=== PATIENT | male | born 1945 | race Caucasian/White ===

== ENCOUNTER 2020-10-29 15:21 | Inpatient (IN) | payer MEDICARE, OTHER ==
[~2020-10-29] VITALS: Ht 185.4 cm; Wt 73.9 kg
--- NOTE | 2020-10-29 15:26 | NUR ---
PT IS IN ROOM #1A. DR ASHRAF EVALUATED THE PT.
[2020-10-29] MEDS ORDERED: HYDR12.55 PO (15:46)
[2020-10-29] MEDS ORDERED: LOSA100T31 PO (15:46)
[2020-10-29] MEDS ORDERED: FLUT16SP16 NS (15:46)
[2020-10-29] MEDS ORDERED: ASPI81TA31 PO (15:46)
[2020-10-29] MEDS ORDERED: CA C1TAB98 PO (15:46)
[2020-10-29] MEDS ORDERED: MELA5TAB PO (15:46)
[2020-10-29] MEDS ORDERED: QUET25TA PO (15:46)
[2020-10-29] MEDS ORDERED: OMEP20TA5 PO (15:46)
[2020-10-29] MEDS ORDERED: HYDR20TA PO (15:46)
[2020-10-29] MEDS ORDERED: ROSU40TA PO (15:46)
[2020-10-29] MEDS ORDERED: NITR0.4T48 SL (15:46)
[2020-10-29] MEDS ORDERED: [UNRECOGNIZED DRUG - CODE] TD (15:46)
[2020-10-29] MEDS ORDERED: HYDR10TA PO (15:46)
[2020-10-29 16:26] LABS: *BILIRUBIN,URIN NEGATIVE (NEGATIVE); *BLOOD, URINE NEGATIVE (NEGATIVE); *CLARITY,URINE CLEAR (CLEAR); *COLOR,URINE YELLOW (YELLOW); *KETONES,URINE NEGATIVE (NEGATIVE); *UROBILINOGEN,URINE 0.2 E.U./dl (NORMAL); LEUKOCYTE ESTERASE ,URINE NEGATIVE (NEGATIVE); NITRITE, URINE NEGATIVE (NEGATIVE); UGLUCOSE NEGATIVE (NEGATIVE)
[2020-10-29 16:30] VITALS: BP 185/71
--- NOTE | 2020-10-29 17:37 | NUR ---
REPORT WAS GIVEN TO RN MHU. PT WAS TRANSFERED TO MHU ROOM #145A.
[2020-10-29] MEDS ORDERED: hydrALAZINE HCL 10 MG TABLET PO ONE (18:45)
--- NOTE | 2020-10-29 18:58 | NUR ---
Gps: patient blood pressure 185/71 hydralazine 10 mg po given per md ordered.
[2020-10-29] MEDS ORDERED: TEMAZEPAM 7.5 MG CAPSULE PO PRN (19:00)
[2020-10-29] MEDS ORDERED: MAGNESIUM HYDROXIDE 30 ML LIQUID UDC PO PRN (19:00)
[2020-10-29] MEDS ORDERED: MAG HYDROX/AL HYDROX/SIMETH 30 ML LIQUID UDC PO PRN (19:00)
[2020-10-29] MEDS ORDERED: ACETAMINOPHEN 325 MG TABLET PO PRN (19:00)
--- NOTE | 2020-10-29 19:03 | NUR ---
PT RECEIVED ON THE UNIT AT 1830 VIA WHEELCHAIR ON 5150. PATIENT IS A/O X2. PT WAS AGITATED WHEN ASKED TO REMOVE HIS BELT AND SHOE LACES. PT IS ABLE TO FOLLOW DIRECTIONS OTHERWISE. BP WAS ELEVATED, ROUTER OPERATOR PIN WAS NOTIFIED AND ORDER FOR ONE TIME HYDRALAZINE OBTAINED. DR. BATES NOTIFIED. PT IS CALM. REPORT WAS ENDORSED TO THE UPCOMING SHIFT.
[2020-10-29 19:45] VITALS: BP 165/65
[2020-10-29] MEDS ORDERED: hydrALAZINE HCL 10 MG TABLET PO PRN (20:45)
[2020-10-29] MEDS ORDERED: FLUTICASONE PROP NASAL SPRAY 16 GM BOTTLE NS SCH (20:45)
[2020-10-29] MEDS: ATORVASTATIN 40 MG TABLET PO SCH ×2 (21:00→22:30)
--- NOTE | 2020-10-29 21:00 | NUR ---
ADMISSION NOTE; Received to care, on a 72 hour hold for danger to self/danger to others. According to the hold, and the medical record, he was residing at [facility], since 10/16/20. Previous to that, he appears to have been at a few other similar facilities for a short amount of time, and before that, he was living alone. He has a brother, kavon, who is his power of business attorney, but he has become paranoid, and untrusting of him, recently. It seems he has been at the hospital several times recently, but always leaves awol, due to becoming fearful. he also reportedly attempted to exit out of his brothers car, while it was moving. In this most recent episode, he awoled to [facility], where he is a member, but wouldn't leave. Law enforcement was called, and he was placed on a hold, and taken to [facility], then transferred here. Upon arrival, his b/p was elevated, 185/71. he was medicated with hydralazine, at 1857. By 1944 it was 165/65. At 1999, was appearing agitated and fearful, refusing to have his belt and shoes with laces,or necklace, taken from his person, or a body check performed. he remained up in the megan chair, at the nurses station, for safety. As of 2099, he is calmer, and more cooperative, agreeing to let staff take his contraband, and do a body check, on him. his b/p is now 138/77. will continue to monitor closely.
[2020-10-29] MEDS: LORAZEPAM 0.5 MG TABLET PO PRN (21:53)
[2020-10-29] MEDS: HYDROCORTISONE 10 MG TABLET PO SCH (21:59)
--- NOTE | 2020-10-29 23:00 | NUR ---
At 2152, he was appearing to get quite agitated, so he was offered PRN Ativan, along with his routine Meds. he initially agreed to take this, but when the Meds were presented, he refused to take them. at 2229, he took his Lipitor dose only, and asked to go to bed. when approached a minute later, he denied asking to go to bed, and wanted to stay in the chair. as or 2299, he appears to be asleep. no distress noted. will continue to monitor closely.
[2020-10-29] MEDS ORDERED: HYDROCORTISONE 10 MG TABLET ONE (23:07)
[2020-10-30 05:45] VITALS: BP 146/74
[2020-10-30] MEDS: PANTOPRAZOLE SODIUM 40 MG TABLET.DR PO SCH (06:42)
[2020-10-30 07:30] VITALS: BP 149/62
[2020-10-30] MEDS ORDERED: FLUTICASONE PROP NASAL SPRAY 16 GM BOTTLE NS PRN (07:48)
--- NOTE | 2020-10-30 08:27 | NUR ---
FIREARMS REPORT: Salesperson Stereo Equipment completed and submitted a DOJ firearms report for 5150 grave disability certification. A copy of report has been placed in patient chart.
[2020-10-30] MEDS: ASPIRIN 81 MG TAB.CHEW PO SCH (09:00)
[2020-10-30] MEDS: LOSARTAN POTASSIUM 50 MG TABLET PO SCH (09:57)
[2020-10-30] MEDS: HYDROCHLOROTHIAZIDE 12.5 MG CAPSULE PO SCH (09:57)
[2020-10-30] MEDS: HYDROCORTISONE 10 MG TABLET PO SCH ×2 (09:58→20:20)
[2020-10-30] MEDS: CALCIUM CARBONATE 500 MG TABLET PO SCH (10:00)
--- NOTE | 2020-10-30 10:50 | NUR ---
DHARMESH Initial Discharge Plan: Patient lives at [address] [place] [address] [address], [place] [address]; ([phone]). Patient's brother Jones ([phone]) is involved in patient's care and stated that he is the DPOA and will fax it to this greeting card writer. Brother stated pt will return back home upon dc. DHARMESH discussed treatment and discharge plan. DHARMESH will coordinate with pt, family, and doctor.
--- NOTE | 2020-10-30 10:51 | NUR ---
DHARMESH Family Contact: Patient's brother Jones ([phone]) is involved in patient's care and stated that he is the DPOA and will fax it to this bond underwriter. Brother stated pt will return back home upon dc. DHARMESH discussed treatment and discharge plan.
--- NOTE | 2020-10-30 10:51 | NUR ---
SW Substance Intervention: Patient was provided with a brief substance abuse intervention and referred to [facility] ([phone]), [facility] ([phone]), and [facility] ([phone]).
--- NOTE | 2020-10-30 11:08 | NUR ---
Treatment Plan: Pt refused to sign due to confusion.
--- NOTE | 2020-10-30 12:06 | NUR ---
Pt alert and verbally responsive. cooperative with care at this time. took the medication this morning. able to speak with BUTCH, the brother and informed him that pt is admitted here in MHU. Butch stated it's better that pt stays here and get the proper medication. per Butch, pt had a covid vaccine last 04/30/20 and 05/30/20 with MODERNA vaccine. pt no information about his PNA VACC.
--- NOTE | 2020-10-30 12:49 | NUR ---
SW Family Contact: Patient's brother Jones ([phone]) who stated pt was living alone independently but unable to take care of self and he was at Memory care unit couple weeks ago. Brother stated he coordinated pt to go to a different memory care unit called [facility] ([phone]) and spoke with Cady bowers who coordinates this.
--- NOTE | 2020-10-30 12:50 | NUR ---
[facility]: This SW spoke with Cady bowers from [facility] ([phone]) who stated that they have been working with family and are accepting pt.
--- NOTE | 2020-10-30 12:51 | NUR ---
[facility]: DHARMESH spoke with medical receptionist ([phone]) who stated that family coordinated for different placement. DHARMESH called admin Antonia ([phone]) and left a voicemail.
--- NOTE | 2020-10-30 14:10 | NUR ---
UR Note: Auth# [id number] Obtained from Caterina with [facility] [phone] 3 days approved with review due on Tuesday10/31/2020. Supervisor [place] [employer]. assigned is Bhavesh Mullins ext [phone].
[2020-10-30 16:20] VITALS: BP 156/69
--- NOTE | 2020-10-30 18:29 | NUR ---
GPS: recieved faxed consent order for pt seroquel signed by Psychiatrist. sent faxed to [employer] per request and received it.
[2020-10-30 20:05] VITALS: BP 146/62
[2020-10-30] MEDS: QUETIAPINE FUMARATE 25 MG TABLET PO SCH (20:20)
[2020-10-30] MEDS: ATORVASTATIN 40 MG TABLET PO SCH (20:20)
[2020-10-31] MEDS: PANTOPRAZOLE SODIUM 40 MG TABLET.DR PO SCH (06:35)
[2020-10-31] MEDS: HYDROCHLOROTHIAZIDE 12.5 MG CAPSULE PO SCH (08:11)
[2020-10-31] MEDS: CALCIUM CARBONATE 500 MG TABLET PO SCH (08:11)
[2020-10-31] MEDS: HYDROCORTISONE 10 MG TABLET PO SCH ×4 (08:11→20:13)
[2020-10-31] MEDS: ASPIRIN 81 MG TAB.CHEW PO SCH (08:11)
[2020-10-31] MEDS: LOSARTAN POTASSIUM 50 MG TABLET PO SCH (08:11)
--- NOTE | 2020-10-31 08:22 | NUR ---
UR Note: Auth# [id number] Metalizing Machine Operator AutomaticAj Adler. ext [phone] contacted this SW and stated pt is authorized until 11/04 with review due on that day. SW requested confirmation to be faxed.
[2020-10-31 08:55] VITALS: BP 138/65
[2020-10-31 16:54] VITALS: BP 100/51
[2020-10-31 19:45] VITALS: BP 113/57
[2020-10-31] MEDS: QUETIAPINE FUMARATE 25 MG TABLET PO SCH ×3 (20:06→20:14)
[2020-10-31] MEDS: ATORVASTATIN 40 MG TABLET PO SCH ×3 (20:06→20:13)
--- NOTE | 2020-11-01 01:59 | NUR ---
Received patient sitting in a chair at the bedside. Poor eye contact noted and very minimal response to questions. The patient refused to take any of his PM medications and was paranoid and angry when they were offered. This patient seemed fixated on reading a taoist pamphlet that he had. Mentioning over and over " I do not need any more medication. All I need is to read every day." This news writer was unable to engage in any meaningful conversation. the patient remains paranoid and confused. Continuing to monitor for safety and educate and encourage the patient about the importance of compliance.
[2020-11-01] MEDS: PANTOPRAZOLE SODIUM 40 MG TABLET.DR PO SCH (06:24)
--- NOTE | 2020-11-01 06:45 | NUR ---
Patient slept 7.15 hours. Refused Protonix this am. Patient paranoid and suspious of staff and surroundings. This program writer continues to reassure patient when necessary and monitor closely for agitation and safety.
[2020-11-01 07:30] VITALS: BP 144/60
[2020-11-01] MEDS: HYDROCORTISONE 10 MG TABLET PO SCH ×2 (08:25→20:41)
[2020-11-01] MEDS: CALCIUM CARBONATE 500 MG TABLET PO SCH (08:25)
[2020-11-01] MEDS: HYDROCHLOROTHIAZIDE 12.5 MG CAPSULE PO SCH (08:25)
[2020-11-01] MEDS: LOSARTAN POTASSIUM 50 MG TABLET PO SCH (08:25)
[2020-11-01] MEDS: ASPIRIN 81 MG TAB.CHEW PO SCH (08:25)
[2020-11-01 17:04] VITALS: BP 122/53
[2020-11-01 20:00] VITALS: BP 150/60
[2020-11-01] MEDS: QUETIAPINE FUMARATE 25 MG TABLET PO SCH (20:41)
[2020-11-01] MEDS: ATORVASTATIN 40 MG TABLET PO SCH (20:41)
--- NOTE | 2020-11-02 02:08 | NUR ---
Received patient last night sitting in the chair next to his bed. When talking to the patient , he became very paranoid and went into the bathroom to hide. Patient did take his PM medications with a lot of reluctancy. Counter Caser encourage the patient and oriented him to the fact that he is in the hospital and safe. Later the patient came to the nurses station, stating that " I can not sleep ". This underwriter mortgage loan offered a medication to help and the patient agreed.When the medication was brought to the patient room , he refused. The patient is very forgetful and stated " Too many thoughts going in my head. I do not know what is going on here ". Again this underwriter mortgage loan provided reassurance and reorientation. It was noted that the patient was becoming unreasonable and suspious. A short time later when underwriter mortgage loan was doing a round, the patient jumped out of his chair and lunged at the underwriter mortgage loan and tried to chock her . This underwriter mortgage loan was able to get free and defuse the situation easily. No injury was obtained by staff or patient. The patient is unpredictable and has poor impulse control. At this time , the patient is asleep. Staff is monitoring him carefully for further behavior escalation, compliance and assuring a safe environment for everyone
[2020-11-02] MEDS: PANTOPRAZOLE SODIUM 40 MG TABLET.DR PO SCH (06:01)
[2020-11-02 07:30] VITALS: BP 166/59
[2020-11-02] MEDS: ASPIRIN 81 MG TAB.CHEW PO SCH (08:18)
[2020-11-02] MEDS: CALCIUM CARBONATE 500 MG TABLET PO SCH (08:18)
[2020-11-02] MEDS: HYDROCHLOROTHIAZIDE 12.5 MG CAPSULE PO SCH (08:18)
[2020-11-02] MEDS: LOSARTAN POTASSIUM 50 MG TABLET PO SCH (08:18)
[2020-11-02] MEDS: HYDROCORTISONE 10 MG TABLET PO SCH ×2 (08:19→20:26)
[2020-11-02 16:00] VITALS: BP 109/60
[2020-11-02] MEDS: LORAZEPAM 0.5 MG TABLET PO PRN (20:10)
[2020-11-02] MEDS: ATORVASTATIN 40 MG TABLET PO SCH (20:10)
[2020-11-02] MEDS: QUETIAPINE FUMARATE 25 MG TABLET PO SCH (20:10)
[2020-11-02 20:20] VITALS: BP 146/64
--- NOTE | 2020-11-03 06:12 | NUR ---
Patient was calm at the start of the shift. At one point this patient took a megan chair and pushed it down the squires into the unit door. Patient is confused and has repetitive speech. Unable to engage in any meaningful conversation. The patient is up early this am c/o rectal pain stating " I have not had a bowel movement in 1 month ". This typewriter aligner assisted patient in the bathroom. Moderated BM . The patient has a hemorrhoid. Will endorse to the on coming shift. Total sleep 6.30. Patient was calmer last night than the night before and medication compliant as well.
[2020-11-03] MEDS: PANTOPRAZOLE SODIUM 40 MG TABLET.DR PO SCH (06:36)
[2020-11-03 07:08] LABS: HEMATOCRIT 35.8 % (36.7-47.1); MEAN CORPUSCULAR HEMOGLOBIN 29.7 uug (23.8-33.4); MEAN CORPUSCULAR VOLUME 88.4 fL (73.0-96.2); PLATELET COUNT (AUTO) 187 K/uL (152-348)
[2020-11-03 07:43] LABS: BILIRUBIN,TOTAL 0.6 mg/dL (0.2-1.0); CREATININE 1.1 mg/dL (0.6-1.3); MAGNESIUM 2.3 mg/dL (1.8-2.4); PHOSPHOROUS 3.3 mg/dL (2.5-4.9); POTASSIUM 4.1 mmol/L (3.5-5.1); TOTAL PROTEIN, SERUM 6.3 g/dL (6.4-8.2)
[2020-11-03 08:03] VITALS: BP 101/52
[2020-11-03 08:06] LABS: THYROID STIMULATING HORMONE 0.286 mIU/mL (0.358-3.740)
[2020-11-03] MEDS: ASPIRIN 81 MG TAB.CHEW PO SCH (08:40)
[2020-11-03] MEDS: HYDROCORTISONE 10 MG TABLET PO SCH ×2 (08:40→21:53)
[2020-11-03] MEDS: HYDROCHLOROTHIAZIDE 12.5 MG CAPSULE PO SCH (08:40)
[2020-11-03] MEDS: ENSURE ENLIVE (VAN) 240 ML LIQUID PO SCH (08:41)
[2020-11-03] MEDS: LOSARTAN POTASSIUM 50 MG TABLET PO SCH (08:41)
[2020-11-03] MEDS: CALCIUM CARBONATE 500 MG TABLET PO SCH (08:42)
--- NOTE | 2020-11-03 09:44 | NUR ---
DHARMESH PC Hearing: Patient had 5250 probable cause hearing today and it was upheld for grave disability.
--- NOTE | 2020-11-03 13:41 | NUR ---
DHARMESH [facility]: DHARMESH spoke with Cady from [facility] ([phone]) and discussed updated treatment and discharge plan.
[2020-11-03] MEDS: QUETIAPINE FUMARATE 25 MG TABLET PO SCH (13:52)
--- NOTE | 2020-11-03 14:51 | NUR ---
received patient in bed alert and orient x3, compliant with all medication Cooperative with PT therapy today and ambulating in the room.denies any pain or discomfort. refused to attendance and participated in group activity .will continue close monitoring.
[2020-11-03 16:47] VITALS: BP 91/50
[2020-11-03 20:00] VITALS: BP 91/47
[2020-11-03] MEDS ORDERED: QUETIAPINE FUMARATE 25 MG TABLET PO SCH (21:00)
[2020-11-03] MEDS: ATORVASTATIN 20 MG TABLET PO SCH (21:53)
--- NOTE | 2020-11-03 22:30 | NUR ---
Received to care, lying in bed, asleep, but easy to awaken. Bedtime medications were given around 2199. He was initially secretive about taking medications, trying to drop the seroquel pill, that was cut in half, thinking that this marine underwriter didnt see it. (he was ordered 37.5 mg, total). Since it could not be found in the bed, the second half, left at nurses station was given, in its place. He was alert, but slightly confused, but suspicious. He did remember me, from last week, and was pleasant. He didn't want a snack, but acknowledged the water left at bedside, and said he would drink some. As of 2229, he appears to be asleep. no distress noted. will continue to monitor closely.
[2020-11-04] MEDS: PANTOPRAZOLE SODIUM 40 MG TABLET.DR PO SCH (06:13)
--- NOTE | 2020-11-04 06:33 | NUR ---
slept 9.25 hours, total. assisted with am care, and shower. appears to be asleep. no distress, noted.
[2020-11-04 07:56] VITALS: BP 123/60
[2020-11-04] MEDS: ASPIRIN 81 MG TAB.CHEW PO SCH (08:40)
[2020-11-04] MEDS: HYDROCORTISONE 10 MG TABLET PO SCH ×2 (08:40→21:07)
[2020-11-04] MEDS: QUETIAPINE FUMARATE 25 MG TABLET PO SCH ×3 (08:40→21:08)
[2020-11-04] MEDS: CALCIUM CARBONATE 500 MG TABLET PO SCH (08:40)
[2020-11-04] MEDS: HYDROCHLOROTHIAZIDE 12.5 MG CAPSULE PO SCH (08:40)
[2020-11-04] MEDS: LOSARTAN POTASSIUM 50 MG TABLET PO SCH (08:41)
[2020-11-04] MEDS: CYANOCOBALAMIN 1000 MCG/ML VIAL IM SCH (08:42)
[2020-11-04] MEDS: ENSURE ENLIVE (VAN) 240 ML LIQUID PO SCH (08:43)
--- NOTE | 2020-11-04 09:02 | NUR ---
UR Note: Auth# [id number] Upholstery Estimator. Bhavesh Adler. ext [phone] assigned case work aide. However, this SW received a voicemail from Kimber case work aide ([phone]) ext: [phone] who stated is covering for Clarrisa. This SW called Kimber and left a detailed voicemail of pt's clinicals and requested for confirmation fax to be sent.
--- NOTE | 2020-11-04 12:04 | NUR ---
UR Note: Auth# [id number] Odd Job LaborerAj Adler. ext [phone] assigned telephonic case manager. This SW received a call from Kimber telephonic case manager ([phone]) ext: [phone] who stated pt is authorized until 11/05 and will require review on 11/05. SW requested confirmation and Kimber stated she will send to this SW.
--- NOTE | 2020-11-04 12:15 | NUR ---
[employer]: This SW spoke with Katerine ([phone]) and arranged transportation for 11/06/20 at 3PM. This SW stated pt's brother Jones ([phone]) will be paying for transportation.
--- NOTE | 2020-11-04 12:20 | NUR ---
SW Family Contact: This SW spoke with pt's brother Jones ([phone]) and he will be paying for transportation through [employer].
--- NOTE | 2020-11-04 15:04 | NUR ---
received patient AAO x2-3 ambulating with FWW, vital sign stable ,denies any pain or discomfort . compliant with all medication.no aggressive or agitated behavior noted , isolative no interaction with other peers.encouraged to attendance in group activity,will contiune close monitoring.
[2020-11-04 16:00] VITALS: BP 123/61
[2020-11-04 20:09] VITALS: BP 125/63
[2020-11-04] MEDS: ATORVASTATIN 20 MG TABLET PO SCH (21:07)
--- NOTE | 2020-11-04 22:18 | NUR ---
Received to care, lying in bed, pleasant upon approach. remains isolative, but cooperative. restless at times. No aggression noted. Compliant with medications, and staff direction. Snacks and fluids were given. Pt was reminded several times of diagnastic procedure in AM, but does not seem to react. He was told he would be NPO, as of 0600 AM. As of 2217, he remains awake. PRN restoril was given, for insomnia. No distress noted. Will continue to monitor closely.
--- NOTE | 2020-11-04 23:30 | NUR ---
Appears to be asleep. No distress noted.
--- NOTE | 2020-11-05 06:00 | NUR ---
slept 7.25 hours, total. continues to sleep. no distress, noted.
[2020-11-05] MEDS: PANTOPRAZOLE SODIUM 40 MG TABLET.DR PO SCH (06:33)
[2020-11-05 07:30] VITALS: BP 138/73
[2020-11-05] MEDS: CYANOCOBALAMIN 1000 MCG/ML VIAL IM SCH (08:22)
[2020-11-05] MEDS: ASPIRIN 81 MG TAB.CHEW PO SCH (08:22)
[2020-11-05] MEDS: QUETIAPINE FUMARATE 25 MG TABLET PO SCH ×3 (08:22→21:00)
[2020-11-05] MEDS: CALCIUM CARBONATE 500 MG TABLET PO SCH (08:22)
[2020-11-05] MEDS: HYDROCORTISONE 10 MG TABLET PO SCH ×2 (08:22→21:00)
[2020-11-05] MEDS: HYDROCHLOROTHIAZIDE 12.5 MG CAPSULE PO SCH (08:22)
[2020-11-05] MEDS: ENSURE ENLIVE (VAN) 240 ML LIQUID PO SCH (08:23)
[2020-11-05] MEDS: LOSARTAN POTASSIUM 50 MG TABLET PO SCH (08:23)
--- NOTE | 2020-11-05 14:47 | NUR ---
UR Note: Auth# [id number] Department SpecialistAj Adler. ext [phone] and left a detailed voicemail and requested auth confirmation.
--- NOTE | 2020-11-05 16:46 | NUR ---
Covid test done and sent to lab.
[2020-11-05 18:00] VITALS: BP 97/51
[2020-11-05] MEDS: ATORVASTATIN 20 MG TABLET PO SCH (21:00)
[2020-11-05 21:11] VITALS: BP 95/50
[2020-11-06] MEDS: QUETIAPINE FUMARATE 25 MG TABLET PO SCH ×3 (00:59→12:36)
[2020-11-06] MEDS: ATORVASTATIN 20 MG TABLET PO SCH (00:59)
[2020-11-06] MEDS: HYDROCORTISONE 10 MG TABLET PO SCH ×2 (00:59→08:57)
[2020-11-06] MEDS: PANTOPRAZOLE SODIUM 40 MG TABLET.DR PO SCH (06:25)
--- NOTE | 2020-11-06 06:47 | NUR ---
GPS: Pt.slept 8.30 last night. No new behavioral problems exhibited. Re-directed and re-assured prn. No increased agitation noted. Safe environment provided.
[2020-11-06 07:30] VITALS: BP 162/65
[2020-11-06] MEDS: ASPIRIN 81 MG TAB.CHEW PO SCH (08:21)
[2020-11-06] MEDS: LOSARTAN POTASSIUM 50 MG TABLET PO SCH (08:24)
--- NOTE | 2020-11-06 08:27 | NUR ---
Discharge Note: Patient will be discharged to [facility] [address] [place] [address] ([phone]). [employer] arranged by Katerine at 3 PM ([phone]). Admin Cady from [facility] ([phone]) is aware and agreeable with pt.s discharge today. Patients DPOA brother BUTCH ([phone]) is aware and agreeable with discharge. Patient is alert and oriented x2. Patient is aware and agreeable with discharge plan. Patients primary doctor Dr. Compa Miranda will provide and monitor patients psychotropic medications. Patient was provided with a brief substance abuse intervention and referred to [facility] ([phone]) [facility] ([phone]) [facility] ([phone]) [facility] ([phone]) [facility] ([phone]) [facility] ([phone]). Patient presents with euthymic mood and congruent affect. Addendum: 11/06/20 at 0828 by DHARMESH LO [employer] arranged by Katerine at 1PM ([phone]).
[2020-11-06] MEDS: HYDROCHLOROTHIAZIDE 12.5 MG CAPSULE PO SCH (08:58)
[2020-11-06] MEDS: CYANOCOBALAMIN 1000 MCG/ML VIAL IM SCH (08:58)
[2020-11-06] MEDS: CALCIUM CARBONATE 500 MG TABLET PO SCH (08:59)
[2020-11-06] MEDS: ENSURE ENLIVE (VAN) 240 ML LIQUID PO SCH (09:00)
--- NOTE | 2020-11-06 09:00 | NUR ---
gp: pt alert and verbally responsive. cooperative with care. medications given and tolerated well. pt had a vitamin B12 IM given. pt will be discharge today.
[2020-11-06 12:00] VITALS: BP 118/52
--- NOTE | 2020-11-06 13:15 | NUR ---
GPS: pt alert and happy that he will be discharged. at 1200 noon pt BP was 118/52 VA 66. pt discharged papers signed and all valuables and belongings given to pt. pt understood the discharged papers and teachings given. no signs of paranoia noted.
--- NOTE | 2020-11-17 14:52 | NUR ---
Social Work Substance Abuse Follow Up Intervention: Paper Reclaiming Machine Operator conducted a substance abuse follow-up intervention.
--- NOTE | 2020-11-20 09:20 | NUR ---
UR Contact: DHARMESH contacted ([phone]) and spoke with Gomez who scheduled peer to peer on 11/21/2020 between 12-1PM. Gomez stated they will contact the assigned psychiatrist Dr. Roque between that time.
--- NOTE | 2020-11-20 10:20 | NUR ---
UR Contact: DHARMESH contacted ([phone]) and spoke with Madison who changed peer to peer to 11/[address] Roque is aware and will be speaking to Dr. Mccracken for peer to peer.
== END 2020-11-06 13:15 | DRG 885 ==
LOC: ER 15:21 → GPS 17:03
PROVIDERS: ADMIT Psychiatry & Neurology Psychosomatic Medicine; ATTEND Internal Medicine
DX: F33.3 Major depressive disorder, recurrent, severe with psychotic symptoms (principal); F23 Brief psychotic disorder; F03.91 Unspecified dementia, unspecified severity, with behavioral disturbance; F29 Unspecified psychosis not due to a substance or known physiological condition; D64.9 Anemia, unspecified; E03.9 Hypothyroidism, unspecified; E78.5 Hyperlipidemia, unspecified; F17.210 Nicotine dependence, cigarettes, uncomplicated; F39 Unspecified mood [affective] disorder; I10 Essential (primary) hypertension; I25.10 Atherosclerotic heart disease of native coronary artery without angina pectoris; K21.9 Gastro-esophageal reflux disease without esophagitis; Z85.828 Personal history of other malignant neoplasm of skin; Z20.822 Contact with and (suspected) exposure to COVID-19; Z73.6 Limitation of activities due to disability
CPT/HCPCS: 36415; 71045; 83735; 84100; 84443; 85025; 97161; A4663; J3420; J3535